=== PATIENT | female | born 2000 | race Caucasian/White ===

== ENCOUNTER 2019-11-10 11:56 | Inpatient (IN) | payer OTHER ==
[~2019-11-10] VITALS: Ht 154 cm; Wt 71.7 kg
[2019-11-10] MEDS ORDERED: OXYTOCIN 30 UNITS/LACT RINGERS 500 ML IV ONE (12:38)
[2019-11-10] MEDS ORDERED: RINGERS SOLUTION,LACTATED 1,000 ML IV PRN (12:38)
[2019-11-10] MEDS ORDERED: MISOPROSTOL 100 MCG TABLET PR ONE (12:45)
[2019-11-10] MEDS ORDERED: MISOPROSTOL 25 MCG TABLET PR ONE (12:45)
[2019-11-10] MEDS ORDERED: LIDOCAINE/PF 1% 30 ML VIAL INJ PRN (12:45)
[2019-11-10] MEDS ORDERED: OXYGEN THERAPY IH SCH (12:45)
[2019-11-10] MEDS ORDERED: TERBUTALINE SULFATE 1 MG/ML VIAL SQ PRN (12:45)
[2019-11-10] MEDS ORDERED: MISOPROSTOL 50 MCG TABLET PR ONE (12:45)
[2019-11-10] MEDS ORDERED: METHYLERGONOVINE MALEATE 0.2 MG/ML VIAL IM PRN (12:45)
[2019-11-10] MEDS ORDERED: FERR-89 PO (13:06)
[2019-11-10] MEDS ORDERED: PREN-217 PO (13:06)
[2019-11-10 13:14] VITALS: BP 121/66
[2019-11-10 13:51] LABS: BASOPHILS % (AUTO) 0.6 % (0.0-2.0); EOSINOPHILS % (AUTO) 0.3 % (1.0-6.0); HEMOGLOBIN 12.3 g/dL (12.0-16.0); LYMPHOCYTES # (AUTO) 1.5 K/uL (1.0-4.8); LYMPHOCYTES % (AUTO) 13.7 % (22.0-44.0); MEAN CORPUSCULAR HEMOGLOBIN 29.6 pg (26.0-34.0); MEAN CORPUSCULAR HGB CONC 33.2 G/dL (31.0-37.0); MEAN CORPUSCULAR VOLUME 89 fL (80-100); MONOCYTES # (AUTO) 0.5 K/uL (0.1-1.0); MONOCYTES % (AUTO) 4.8 % (2.0-9.0); NEUTROPHILS # (AUTO) 8.7 K/uL (1.8-7.7); NEUTROPHILS % (AUTO) 80.6 % (40.0-70.0); PLATELET COUNT (AUTO)-OB 201 K/uL (150-450); RED BLOOD CELL COUNT(AUTO) 4.15 MIL/uL (4.00-5.20); RED CELL DISTRIBUTION WIDTH 13.7 % (11.5-14.5)
[2019-11-10] MEDS: RINGERS SOLUTION,LACTATED 1,000 ML IV SCH ×2 (14:40→20:35)
[2019-11-10] MEDS ORDERED: DINOPROSTONE 10 MG VAGINAL SUPPOSITORY VG ONE (16:45)
[2019-11-10] MEDS: FentaNYL CITRATE-PF 100 MCG/2 ML VIAL IVP PRN (20:51)
[2019-11-10] MEDS ORDERED: BUTORPHANOL TARTRATE 2 MG/ML VIAL IVP PRN (22:15)
[2019-11-11] MEDS: FentaNYL CITRATE-PF 100 MCG/2 ML VIAL IVP PRN (02:51)
[2019-11-11] MEDS: RINGERS SOLUTION,LACTATED 1,000 ML IV SCH ×2 (04:01→09:46)
[2019-11-11] MEDS ORDERED: DiphenhydrAMINE HCL 50 MG/ML VIAL IVP PRN (04:30)
[2019-11-11] MEDS ORDERED: NALBUPHINE HCL 10 MG/ML VIAL IVP PRN (04:30)
[2019-11-11] MEDS ORDERED: ONDANSETRON HCL 4 MG/2 ML VIAL IVP PRN (04:30)
[2019-11-11] MEDS ORDERED: ROPIVACAINE HCL/PF 0.2% 100 ML ED PRN (04:30)
[2019-11-11] MEDS ORDERED: LIDOCAINE/PF 2% 5 ML VIAL ONE (04:34)
[2019-11-11] MEDS ORDERED: ROPIVACAINE HCL/PF 0.2% 100 ML ED ONE (04:34)
[2019-11-11] MEDS ORDERED: -PHARMACY NOTE- MISC ONE (04:45)
[2019-11-11] MEDS ORDERED: OXYTOCIN 30 UNITS/LACT RINGERS 500 ML IV ONE ×2 (05:47→13:35)
[2019-11-11] MEDS ORDERED: OXYTOCIN 30 UNITS/LACT RINGERS 500 ML IV PRN (08:50)
[2019-11-11] MEDS ORDERED: MAGNESIUM HYDROXIDE SUSPENSION 30 ML UDCUP PO PRN (13:45)
[2019-11-11] MEDS ORDERED: LIDOCAINE/PF 1% 30 ML VIAL INJ PRN (13:45)
[2019-11-11] MEDS ORDERED: GLYCERIN/WITCH HAZEL LEAF 40 PADS JAR TP PRN (13:45)
[2019-11-11] MEDS ORDERED: LANOLIN 7 GM OINTMENT TP PRN (13:45)
[2019-11-11] MEDS ORDERED: OxyCODONE HCL/ACETAMINOPHEN 5-325 MG TABLET PO PRN ×2 (13:45)
[2019-11-11] MEDS ORDERED: BENZOCAINE 20%/MENTHOL 56 GM SPRAY CANISTER TP PRN (13:45)
[2019-11-11] MEDS: IBUPROFEN 800 MG TABLET PO PRN ×2 (15:05→21:36)
[2019-11-12] MEDS: IBUPROFEN 800 MG TABLET PO PRN (06:27)
[2019-11-12 07:42] LABS: BASOPHILS % (AUTO) 0.3 % (0.0-2.0); EOSINOPHILS % (AUTO) 0.5 % (1.0-6.0); HEMATOCRIT 26.6 % (36-46); HEMOGLOBIN 8.9 g/dL (12.0-16.0); LYMPHOCYTES # (AUTO) 2.9 K/uL (1.0-4.8); LYMPHOCYTES % (AUTO) 21.2 % (22.0-44.0); MEAN CORPUSCULAR HEMOGLOBIN 29.8 pg (26.0-34.0); MEAN CORPUSCULAR HGB CONC 33.3 G/dL (31.0-37.0); MEAN CORPUSCULAR VOLUME 90 fL (80-100); MONOCYTES # (AUTO) 0.8 K/uL (0.1-1.0); MONOCYTES % (AUTO) 6.3 % (2.0-9.0); NEUTROPHILS # (AUTO) 9.7 K/uL (1.8-7.7); NEUTROPHILS % (AUTO) 71.7 % (40.0-70.0); PLATELET COUNT (AUTO)-OB 156 K/uL (150-450); RED BLOOD CELL COUNT(AUTO) 2.98 MIL/uL (4.00-5.20); RED CELL DISTRIBUTION WIDTH 13.6 % (11.5-14.5)
[2019-11-12] MEDS ORDERED: FERR-89 PO (08:36)
[2019-11-12] MEDS ORDERED: IBUP-2071 PO (08:36)
[2019-11-12] MEDS ORDERED: DOCU-275 PO (08:37)
== END 2019-11-12 12:50 | disposition home or self-care (01) | DRG 807 ==
LOC: 4S 11:56 → OBSVTOIN 11:56
PROVIDERS: ADMIT Obstetrics & Gynecology Obstetrics; ATTEND Obstetrics & Gynecology Obstetrics
PROC: 10E0XZZ Delivery of Products of Conception, External Approach (ICD-10-PCS; principal; 2019-11-11)
PROC: 0UQGXZZ Repair Vagina, External Approach (ICD-10-PCS; 2019-11-11)
PROC: 3E0R3BZ Introduction of Anesthetic Agent into Spinal Canal, Percutaneous Approach (ICD-10-PCS; 2019-11-11)
PROC: 00HU33Z Insertion of Infusion Device into Spinal Canal, Percutaneous Approach (ICD-10-PCS; 2019-11-11)
DX: O71.4 Obstetric high vaginal laceration alone (principal); Z37.0 Single live birth; Z3A.40 40 weeks gestation of pregnancy
CPT/HCPCS: 86850; 86900; 86901; J0595; J2590; J2795; J3010; J3490; J7120